=== PATIENT | female | born 2005 | race Caucasian/White ===

== ENCOUNTER 2024-06-20 01:16 | Emergency (ER) | payer BC ==
[~2024-06-20] VITALS: Ht 170.2 cm; Wt 69.0 kg
[2024-06-20 01:21] VITALS: O2SAT 98
[2024-06-20] MEDS: KETOROLAC 15MG/ML VIAL IM ONE (02:10)
[2024-06-20] MEDS: LIDOCAINE 5% PATCH TOP SCH (02:14)
[2024-06-20 03:25] LABS: HCG SCREEN NEGATIVE
[2024-06-20 05:31] VITALS: BP 115/72; PULSE 95; RESP 12; TEMP 37.7; O2SAT 99
== END 2024-06-20 05:53 | disposition left against medical advice (07) ==
LOC: ER 01:16
DX: S32.9XXA Fracture of unspecified parts of lumbosacral spine and pelvis, initial encounter for closed fracture (principal); Z88.0 Allergy status to penicillin; Z65.3 Problems related to other legal circumstances; V89.2XXA Person injured in unspecified motor-vehicle accident, traffic, initial encounter; Y93.89 Activity, other specified; Y92.89 Other specified places as the place of occurrence of the external cause; Y99.8 Other external cause status
CPT/HCPCS: 80320; 84703; 36415; 71045; 72131; 74176; 93005; 99285; J1885; Z7610; G0480